=== PATIENT | female | born 1990 | race Caucasian/White ===

== ENCOUNTER 2017-04-09 11:23 | Day surgery (SDC) | payer MEDICAID ==
[~2017-04-09] VITALS: Ht 163.8 cm; Wt 79.5 kg
[~2017-04-09 11:23] MED LIST: BUPIVACAINE HCL/PF 0.5% 30 ML VIAL ONE; GUM MASTIC/STORAX/MSAL/ALCOHOL LIQUID 0.67 ML VIAL TP ONE; LIDOCAINE HCL 2%/EPI 1:200,000/PF 10 ML VIAL ONE; RINGERS SOLUTION,LACTATED 1,000 ML IV ONE
[2017-04-09] MEDS ORDERED: DEXAMETHASONE SOD PHOS 4 MG/ML VIAL IVP ONE (11:24)
[2017-04-09] MEDS ORDERED: SUCCINYLCHOLINE CHLORIDE 20 MG/ML 10 ML VIAL IVP ONE (11:24)
[2017-04-09] MEDS ORDERED: PROPOFOL 1% 20 ML VIAL IVP ONE (11:24)
[2017-04-09] MEDS ORDERED: ONDANSETRON HCL 4 MG/2 ML VIAL IVP ONE (11:24)
[2017-04-09] MEDS ORDERED: LIDOCAINE HCL/PF 2% 5 ML VIAL IM ONE (11:24)
[2017-04-09] MEDS ORDERED: FentaNYL CITRATE-PF 100 MCG/2 ML VIAL IVP ONE (11:24)
[2017-04-09] MEDS ORDERED: KETOROLAC TROMETHAMINE 60 MG/2 ML VIAL IM ONE (11:24)
[2017-04-09] MEDS ORDERED: MIDAZOLAM HCL 2 MG/2 ML VIAL IVP ONE (11:24)
[2017-04-09] MEDS ORDERED: CeFAZolin 2 GM/DEXTROSE 50 ML IV ONE ×2 (11:25→13:30)
[2017-04-09] MEDS ORDERED: RINGERS SOLUTION,LACTATED 1,000 ML IV ONE (12:00)
[2017-04-09] MEDS ORDERED: ACETAMINOPHEN 1000 MG/ISO-OSM 100 ML IV ONE (12:49)
[2017-04-09] MEDS ORDERED: MEPERIDINE-PF 25 MG/ML SYRINGE IVP PRN (13:00)
[2017-04-09] MEDS ORDERED: FentaNYL CITRATE-PF 100 MCG/2 ML VIAL IVP PRN (13:00)
[2017-04-09] MEDS ORDERED: HYDROmorphone 2 MG/ML SYRINGE IVP PRN (13:00)
[2017-04-09] MEDS ORDERED: SODIUM CHLORIDE 0.9% 0 ML ONE (14:12)
[2017-04-09] MEDS ORDERED: ACETAMINOPHEN 500 MG TABLET PO PRN (15:00)
[2017-04-09] MEDS ORDERED: IBUPROFEN 600 MG TABLET PO PRN (15:00)
== END 2017-04-09 16:50 | disposition home or self-care (01) ==
LOC: SURGERY 11:23
PROVIDERS: ATTEND Surgery
DX: K42.0 Umbilical hernia with obstruction, without gangrene (principal); F41.9 Anxiety disorder, unspecified; Z98.890 Other specified postprocedural states; Z90.721 Acquired absence of ovaries, unilateral
CPT/HCPCS: 49587; J0131; J0330; J0690; J1100; J1885; J2250; J2405; J2704; J3010; J3490 ×3; J7120